=== PATIENT | male | born 1950 | race Caucasian/White ===

== ENCOUNTER 2016-08-29 09:55 | Emergency (ER) | payer OTHER, MEDICAID ==
--- NOTE | 2016-08-29 11:48 | DX ---
Chest, PA and Lateral History: Cough and fever Comparison: July 06, 2016, April 27, 2015 Findings: No evidence for pneumonia, cardiomegaly or pleural effusion formation. Moderately prominent lung volumes and perihilar bronchial wall thickening are stable and consistent with underlying COPD. No mass or adenopathy is identified. There is a small chronic hiatal hernia present behind the heart with a new air-fluid level within the hiatal hernia. A thoracic kyphosis associated with stable mil d compressions (T12, T8, T7, T6 and T4) are again present and suggest the possibility of underlying o steoporosis. A left chest wall auto defibrillator device and 2 right ventricular auto defibrillator l joann remain in place. Impression: 1. No pneumonia identified. 2. Suspect osteoporosis. This patient might benefit from a DEXA scan. 3. Small hiatal hernia.
[2016-08-29] MEDS ORDERED: IPRATROPIUM/ALBUTEROL 3 ML DEYVIAL IH ONE (11:49)
[2016-08-29] MEDS ORDERED: OSELTAMIVIR PHOSPHATE 75 MG CAP PO ONE (11:55)
--- NOTE | 2016-08-29 12:10 | UCPHY ---
[id number] 4d 08/29/16 11:55 HPI/ROS: CHIEF COMPLAINT: Cough flu-like symptoms HISTORY OF PRESENT ILLNESS: 65-year-old immunocompetent male with no history of influenza vaccination this season complaining of 5 days of nasal congestion, cough, flu-like symptoms. No chest pain. No back pain. REVIEW OF SYSTEMS: A ten point review of systems was performed and is negative with the exception of the items mentioned in the HPI PAST MEDICAL & SURGICAL HISTORY: AR. Implanted cardiac defibrillator. SOCIAL HISTORY:nonsmoker PHYSICAL EXAM (Prior to examination, patient consented to physical exam, hands were washed and my usual and customary physical exam procedures followed) 1) GENERAL: Well-developed, well-nourished, alert and oriented. Appears to be in no acute distress. 2) HEAD: Normocephalic, atraumatic 3) HEENT: Pupils equal, round, reactive to light bilaterally. Sclera anicteric. Nasopharynx, oropharynx, clear, no lesions. Ears bilaterally with normal tympanic membranes. 4) NECK: Full range of motion, no meningeal signs. 5) LUNGS: mild end-expiratory wheeze bilaterallyC no rhonchi, no retractions. 6) HEART: Regular rate and rhythm, no murmur, no heave, no gallop. 7) ABDOMEN: No guarding, no rebound, no focal tenderness, negative McBurney's, negative Pineda's, negative Rovsing's, negative peritoneal sign, 8) MUSCULOSKELETAL: . Moving all extremities, no focal areas of tenderness, no obvious trauma. No peripheral edema or discoloration. 9) BACK: No CVA tenderness, no midline vertebral tenderness, no fluctuance, no step-off, no obvious trauma, no visual or palpable abnormality. 10) SKIN: No rash, no petechiae. DIFFERENTIAL DIAGNOSIS: In no particular order including not limited to pneumonia, bronchitis, AR, PE (Jose Angel,D Faye) Constitutional: Initial Vital Signs Temperature (C) 36.7 C 08/29/16 11:04 Heart Rate 86 08/29/16 11:04 Respiratory Rate 18 08/29/16 11:04 Blood Pressure 107/79 08/29/16 11:04 O2 Sat (%) 95 08/29/16 11:04 O2 Delivery Mode Room Air Allergies/Adverse Reactions: No Known Allergies Allergy (Verified 08/29/16 11:03) Home Medications: Medication Instructions Recorded Aspirin [Aspirin 325 mg (*)] 325 mg PO DAILY 10/26/09 Carvedilol [Coreg (*)] 6.25 mg PO BIDMEAL 10/26/09 Furosemide [Lasix 20 MG (*)] 20 mg PO BID 10/26/09 PARoxetine HCL [Paxil 30mg (*)] 30 mg PO DAILY 10/26/09 Quinapril HCl [Accupril 10 MG] 10 mg PO DAILY 10/26/09 Albuterol [Proventil Inhaler HFA 1 - 2 puffs IH Q4PRN PRN #1 mdi 08/29/16 (*)] Oseltamivir Phosphate [Tamiflu] 75 mg PO BIDMEAL 5 Days 08/29/16 predniSONE [Prednisone] 60 mg PO DAILY #9 tablet 08/29/16 MDM/Departure - MDM Diagnostics: Chest, PA and Lateral History: Cough and fever Comparison: July 06, 2016, April 27, 2015 Findings: No evidence for pneumonia, cardiomegaly or pleural effusion formation. Moderately prominent lung volumes and perihilar bronchial wall thickening are stable and consistent with underlying COPD. No mass or adenopathy is identified. There is a small chronic hiatal hernia present behind the heart with a new air-fluid level within the hiatal hernia. A thoracic kyphosis associated with stable mild compressions (T12, T8, T7, T6 and T4) are again present and suggest the possibility of underlying osteoporosis. A left chest wall auto defibrillator device and 2 right ventricular auto defibrillator leads remain in place. Impression: 1. No pneumonia identified. 2. Suspect osteoporosis. This patient might benefit from a DEXA scan. 3. Small hiatal hernia. Dictated By: Vern Aguayo MD Images reviewed by myself (Caitlin Walter) Medications Given: Discontinued Medications Albuterol/Ipratropium (Duoneb) 3 ml IH EDNOW ONE Stop: 08/29/16 11:50 Last Admin: 08/29/16 11:57 Dose: 3 ml Oseltamivir Phosphate (Tamiflu) 75 mg PO EDNOW ONE Stop: 08/29/16 11:56 Last Admin: 08/29/16 12:18 Dose: 75 mg Prednisone (Prednisone) 60 mg PO EDNOW ONE Stop: 08/29/16 12:24 Last Admin: 08/29/16 12:45 Dose: 60 mg ED Course/Re-evaluation: 12:16 p.m.: Re-evaluation after DuoNeb treatment says that he is feeling significant improvement. His wheezing has resolved. Discussed case Dr. David Piña in the urgent care. Doubt PE. Doubt AR. I do not think that hospitalization is currently indicated. He has had no complaints of chest pain or dyspnea. He does have positive flu. He has been started on Tamiflu. Usual and customary URI precautions instructions provided. He feels comfortable being discharged. If at any point he develops chest pain, dyspnea, needs to call 911 (Caitlin Walter) Urgent Care PA supervision Physician documentation: The patient was evaluated and managed by the physician printer floor covering assistant. My co- signature indicates that I have reviewed this chart and I agree with the findings and plan of care as documented. I am is secondary supervising physician. (David Piña) - Depart Disposition: Home, Routine, Self-Care Clinical Impression: Influenza A Condition: Good Instructions: Influenza (ED) Additional Instructions: Return to the emergency department immediately for change in breathing habits, change in voice, change in swallowing habits, change in mental status, or any other symptoms that concern you. Stand Alone Forms: Work Excuse Prescriptions: Albuterol [Proventil Inhaler HFA (*)] 1 - 2 puffs IH Q4PRN PRN #1 mdi PRN Reason: Cough, Moderate Oseltamivir Phosphate [Tamiflu] 75 mg PO BIDMEAL 5 Days predniSONE [Prednisone] 60 mg PO DAILY #9 tablet Referrals: Sky Lomeli MD [Primary Care Provider] - 1 day without fail - PQRS PQRS Measurement: 134: Depression screening and followup, PRIME MD-PHQ2 (12 years and older) Over the last 2 weeks, how often have you been bothered by any of the following problems? 1. Feeling down, depressed, or hopeless? 2. Little interest or pleasure in doing things? Patient answered no to both 1 and 2 130: Documentation of medications. Reviewed all patient medications, doses, route and frequency. 226: Do you smoke? No. 47: 65 and older: Advanced care planning. Patient has advanced directive. 51: 18 years old and older with diagnosis of COPD, spirometry performance. Patient has no history of COPD 52: 18 years old and older with COPD and symptoms of COPD or FEV1<60% predicted prescribed a B Agonist. No COPD history (Caitlin Walter)
[2016-08-29] MEDS ORDERED: predniSONE 20 MG TAB PO ONE (12:23)
[2016-08-29 12:46] VITALS: BP 128/82; PULSE 93; RESP 16; TEMP 98.6; O2SAT 93
== END 2016-08-29 12:47 | disposition home or self-care (01) ==
LOC: CED 09:55
DX: J11.1 Influenza due to unidentified influenza virus with other respiratory manifestations (principal); Z95.810 Presence of automatic (implantable) cardiac defibrillator
CPT/HCPCS: 71020; G0463; 87400-PO; 99214-PO

== ENCOUNTER 2018-07-10 11:40 | Inpatient (IN) | payer OTHER ==
--- NOTE | 2018-07-09 19:18 | PDGENHP ---
History & Physical Chief Complaint: left knee osteoarthritis History of Present Illness: Jann is a pleasant 67 year old male with left knee osteoarthritis. He reports continued pain in his left knee to the point where it is affecting his daily activities. Pertinent Past, Social, Family History: PMH: anxiety, CAD, heart attack, heart disease, pacemaker. Social history: former smoker. FH: non-contributory Relevant Physical Exam: Physical exam of the left knee demonstrates a positive grind sign through the patella. He lacks 3-4 deg of full extension and flexion is somewhat limited. He has increased swelling within the popliteal fossa. He has mild gapping to a valgus stress suggestive of a loss of cartilage height. He has palpable spurring overlying the medial > lateral osteochondral junction which are tender to palpation. Minimally tender overlying the medial and lateral joint line. Distal neurovascularity intact upon a limited exam. Cardiorespiratory Assessment: RRR, CTAB
[~2018-07-10 11:40] MED LIST: ROPIVACAINE 0.2% 80 MG, EPINEPHrine 0.2 MG, KETOROLAC TROMETHAMINE 30 MG, morphINE 10 M... IU ONE; TRANEXAMIC ACID 3,000 MG in NS (SYRINGE) 50 ML IRR ONE
[2018-07-10] MEDS ORDERED: ceFAZolin 2 GM/DEXTROSE 100 ML IV ONE (11:50)
[2018-07-10] MEDS ORDERED: LR 1,000 ML IV ONE (11:57)
[2018-07-10] MEDS ORDERED: TRANEXAMIC ACID 3,000 MG/50 ML BAG IRR ONE (12:29)
[2018-07-10] MEDS ORDERED: THROMBIN (BOVINE) 5,000 UNIT VIAL TP ONE (12:29)
[2018-07-10] MEDS ORDERED: CALCIUM CHLORIDE 1 GM/10 ML INJ ONE (12:29)
[2018-07-10] MEDS ORDERED: BACITRACIN 50,000 UNITS/10 ML SYR IRR ONE (12:30)
[2018-07-10] MEDS ORDERED: POLYMYXIN B SULFATE 500,000 UNIT/10 ML SYR IRR ONE (12:30)
[2018-07-10] MEDS ORDERED: BUPIVACAINE/EPI 0.5% 30 ML SDV ONE (12:31)
--- NOTE | 2018-07-10 13:13 | PDHPUP ---
History & Physical Update H&P update statement: This history and physical update is based on an assessment of the patient which was completed after admission or registration (within 24 hours), but prior to the surgery/procedure. H&P update: H&P reviewed & patient examined, no change in patient's condition since H&P completed
[2018-07-10] MEDS ORDERED: MIDAZOLAM 2 MG/2 ML VIAL ONE (13:29)
[2018-07-10] MEDS ORDERED: fentaNYL 100 MCG/2 ML INJ ONE (13:31)
[2018-07-10] MEDS ORDERED: PROPOFOL/EMULSION 500 MG/50 ML BOTTLE IV ONE (13:32)
[2018-07-10] MEDS ORDERED: MIDAZOLAM 2 MG/2 ML VIAL IVP ONE (13:53)
--- NOTE | 2018-07-10 13:55 | PDANEPAE ---
ANE History of Present Illness 67 year old male for left knee arthroplasty. History of CAD, SD, CHF, cardiomyopathy and defibrillator. ANE Past Medical History - Cardiovascular History Hx Hypertension: No Hx Arrhythmias: No Hx Chest Pain: No Hx Coronary Artery / Peripheral Vascular Disease: Yes Hx CHF / Valvular Disease: No Hx Palpitations: No Cardiovascular History Comment: SD 1985. CARDIOMYOPATHY. AICD 2015 - [employer] - Pulmonary History Hx COPD: No Hx Asthma/Reactive Airway Disease: No Hx Recent Upper Respiratory Infection: No Hx Oxygen in Use at Home: No Hx Sleep Apnea: Yes Sleep Apnea Screening Result - Last Documented: Negative - Neurologic History Hx Cerebrovascular Accident: No Hx Seizures: No Hx Dementia: No - Endocrine History Hx Diabetes: No - Renal History Hx Renal Disorders: Yes Renal History Comment: HX OF POST OP DIFFICULTY WITH URINATION - Liver History Hx Hepatic Disorders: No - Neurological & Psychiatric Hx Hx Neurological and Psychiatric Disorders: Yes Neurological / Psychiatric History Comment: DEPRESSION - Cancer History Hx Cancer: Yes - Congenital Disorder History Hx Congenital Disorders: No - GI History Hx Gastrointestinal Disorders: Yes Gastrointestinal History Comment: HX OF COLON POLYPS - Other Health History Other Health History: FULL DENTURES. OSTEOARTHRITIS - Chronic Pain History Chronic Pain: Yes (LT KNEE) - Surgical History Prior Surgeries: RT RETINAL REPAIR 04/2018. RT TOTAL HIP 2016. ORIF RT HIP WITH POST HARDWARE REMVL. AICD 2014. REMVL NASAL GROWTH. 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 Pacemaker Last Checked: 07/03/18 ANE Patient History - Allergies Allergies/Adverse Reactions: No Known Allergies Allergy (Verified 08/29/16 11:03) - Home Medications Home Medications: Aspirin [Aspirin 325 mg (*)] 325 mg PO DAILY 10/26/09 [Last Taken 07/03/18] Carvedilol [Coreg (*)] 6.25 mg PO BIDMEAL 10/26/09 [Last Taken 07/09/18] Furosemide [Lasix 20 MG (*)] 20 mg PO BID 10/26/09 [Last Taken 07/09/18] PARoxetine HCL [Paxil 30mg (*)] 30 mg PO DAILY 10/26/09 [Last Taken 07/09/18] Quinapril HCl [Accupril 10 MG] 10 mg PO DAILY 10/26/09 [Last Taken 07/09/18] Rosuvastatin Calcium 5 mg PO HS 06/21/18 [Last Taken 07/09/18] Tamsulosin HCl [Flomax 0.4 MG (*)] 0.4 mg PO DAILY@19 06/21/18 [Last Taken 07/09] - NPO status NPO Since - Liquids (Date): 07/10/18 NPO Since - Liquids (Time): 09:00 NPO Since - Solids (Date): 07/09/18 NPO Since - Solids (Time): 18:00 - Smoking Hx Smoking Status: Former smoker ANE Labs/Vital Signs - Vital Signs Blood Pressure: 107/63 Heart Rate: 68 Respiratory Rate: 15 O2 Sat (%): 96 Height: 172.72 cm Weight: 70.307 kg ANE Physical Exam - Airway Neck exam: FROM Mallampati Score: Class 2 Mouth exam: poor dentition - Pulmonary Pulmonary: no respiratory distress - Cardiovascular Cardiovascular: regular rate and rhythym - ASA Status ASA Status: III ANE Anesthesia Plan Anesthesia Plan: spinal Regional Anesthesia: adductor canal FNB
[2018-07-10] MEDS ORDERED: fentaNYL 100 MCG/2 ML INJ IVP PRN (14:01)
[2018-07-10] MEDS ORDERED: NALOXONE HCL 0.4 MG/ML INJ IVP PRN (14:01)
[2018-07-10] MEDS ORDERED: DEXAMETHASONE 4 MG/ML VIAL IVP PRN (14:01)
[2018-07-10] MEDS ORDERED: oxyCODONE IR 5 MG TAB PO PRN (14:01)
[2018-07-10] MEDS ORDERED: ALBUTEROL 3 ML DEYVIAL IH PRN (14:01)
[2018-07-10] MEDS ORDERED: ONDANSETRON 4 MG/2 ML VIAL IVP PRN ×2 (14:01→15:39)
[2018-07-10] MEDS ORDERED: LABETALOL HCL 5 MG/ML 20 ML MDV IVP PRN (14:01)
[2018-07-10] MEDS ORDERED: LR 500 ML IV PRN (14:01)
[2018-07-10] MEDS ORDERED: TAPENTADOL HCL 50 MG TAB PO PRN (15:39)
[2018-07-10] MEDS ORDERED: PROMETHAZINE HCL 25 MG SUPPR PR PRN (15:39)
[2018-07-10] MEDS ORDERED: POLYETHYLENE GLYCOL 3350 17 GM PKT PO PRN (15:39)
[2018-07-10] MEDS ORDERED: DIPHENOXYLATE/ATROPINE LOMOTIL 1 TAB PO PRN (15:39)
[2018-07-10] MEDS ORDERED: diphenhydrAMINE 25 MG CAP PO PRN (15:39)
[2018-07-10] MEDS ORDERED: TEMAZEPAM 15 MG CAP PO PRN (15:39)
[2018-07-10] MEDS ORDERED: BISACODYL 10 MG SUPP PR PRN (15:39)
[2018-07-10] MEDS ORDERED: PROMETHAZINE HCL 25 MG/ML INJ IVP PRN (15:39)
[2018-07-10] MEDS ORDERED: MAGNESIUM HYDROXIDE 30 ML UDCUP PO PRN (15:39)
[2018-07-10] MEDS ORDERED: CYCLOBENZAPRINE 10 MG TAB PO PRN (15:39)
[2018-07-10] MEDS ORDERED: ONDANSETRON DISINTEGRATING 4 MG TAB PO PRN (15:39)
[2018-07-10] MEDS ORDERED: LACTULOSE 20 GM/30 ML UDCUP PO PRN (15:39)
[2018-07-10] MEDS ORDERED: METOCLOPRAMIDE 10 MG/2 ML VIAL IVP PRN (15:39)
--- NOTE | 2018-07-10 15:39 | POSTOPPROG ---
Post Op Note Date of Operation: 07/10/18 Surgeon: Corinne Hoff Supervisor Patching: coltrain Anesthesia: Epidural, IV Sedation Pre-op Diagnosis: l knee oa Procedure: l tkr Inf/Abcess present in the surg proc area at time of surgery?: No Depth: Deep Incisional (Fascial) EBL: 100-500
[2018-07-10] MEDS ORDERED: LR 1,000 ML IV SCH (16:00)
--- NOTE | 2018-07-10 17:55 | POSTANESTH ---
Post Anesthetic Evaluation Cardiovascular Status: Normal, Stable Respiratory Status: Normal, Stable Level of Consciousness/Mental Status: Can Participate in Eval Pain Control: Adequate, Prn Tx Ordered Nausea/Vomiting Control: Adequate, Prn Tx Ordered Complications Possibly Related to Anesthesia: None Noted
[2018-07-10] MEDS: LISINOPRIL 10 MG TAB PO SCH (18:45)
[2018-07-10] MEDS ORDERED: TAMSULOSIN HCL 0.4 MG CAP PO SCH (19:00)
[2018-07-10] MEDS: traMADol 50 MG TAB PO SCH (19:15)
[2018-07-10] MEDS: ACETAMINOPHEN 325 MG TAB PO SCH (19:15)
[2018-07-10] MEDS: CARVEDILOL 6.25 MG TAB PO SCH (19:16)
[2018-07-10] MEDS: KETOROLAC 15 MG/1 ML SDV IVP SCH (19:16)
[2018-07-10] MEDS: FUROSEMIDE 20 MG TAB PO SCH (20:27)
[2018-07-10] MEDS: ceFAZolin 2 GM/DEXTROSE 100 ML IV SCH (20:27)
[2018-07-10] MEDS: FAMOTIDINE 20 MG TAB PO SCH (20:27)
[2018-07-10] MEDS: SENNOSIDES/DOCUSATE SODIUM TAB PO SCH (20:28)
[2018-07-11] MEDS: ACETAMINOPHEN 325 MG TAB PO SCH ×3 (00:09→11:46)
[2018-07-11] MEDS: KETOROLAC 15 MG/1 ML SDV IVP SCH ×3 (00:09→11:47)
[2018-07-11] MEDS: traMADol 50 MG TAB PO SCH ×3 (00:09→11:47)
--- NOTE | 2018-07-11 00:26 | GOP ---
DATE OF OPERATION: 07/10/2018 SURGEON: Corinne Hoff MD RADAR SIGNAL PROCESSING ENGINEER: KENNETH Parker, LSA, whose presence was medically necessary. ANESTHESIA: Epidural plus IV sedation. PREOPERATIVE DIAGNOSIS: Left knee osteoarthritis. POSTOPERATIVE DIAGNOSIS: Left knee osteoarthritis. PROCEDURE PERFORMED: Left total knee arthroplasty. FINDINGS: INDICATIONS: This is a 67-year-old male with a several year history of left knee pain worsening with use and with time despite multiple conservative measures. Radiological studies reveal [id number]-rh-[id number] osteoarthritic changes. He wishes to have surgery in order to resolve the problem. DESCRIPTION OF PROCEDURE: Patient was brought to the operating room after the left side had been nita ntified as correct side by the patient, nurse, and physician. Once in the operating room, he was giv en epidural nerve block and then placed under IV sedation. He had a tourniquet placed around the upp er portion of the left side. The left lower extremity was then sterilely prepped and draped in usual fashion using GSI solution. Once prepped and draped, limb was exsanguinated, tourniquet inflated to 250 mmHg. Incorporating an old curvilinear incision he had at the inferior portion of his knee, the incision was extended superiorly approximately 10 or more centimeters. Sharp dissection was carried down through the skin and subcutaneous layers with bleeding controlled using electrocautery. A medi al parapatellar incision was made through the extensor mechanism with patella brought to the side but not everted. He was noted to have grade 4 chondral changes in the medial compartment and grade 3 ch ondral changes noted through the remainder of the knee. The ACL as well as the medial and lateral me niscus were removed. Drill hole was made 1 cm anterior to the intercondylar notch with an intramedul pastor guide placed within the femur set at 5 degrees of valgus and set to remove 10 mm of bone. The c utting block was pinned into place. The intramedullary guide was removed. Oscillating saw was used to remove the distal end of the femur. Once achieving a flat cut, the knee was brought to further fl exion. A curved osteotome was used to remove the cartilage from the posterior condyles of each of th e femurs. Sizing guide was put in place, noting that a size 6 seemed to fit best without notching th e anterior cortex of the femur then 4 drill holes were made, and a size 6 4-in-1 cutting block was pu t into place with the anterior, posterior, and chamfer cuts made. Size 6 trial was put into place an d noted to fit securely. The leg was able to be fully extended, suggesting an adequate amount of bon e had been removed. Lug holes were drilled for the femoral component, and the femoral trial was ray yannick. The knee was then brought to maximal flexion. The tibia subluxed anteriorly. An external tibi al guide was put into place, set in neutral varus valgus and set to remove 2 mm of bone from the low side of the tibia which was the medial side. Once pinned into place, cutting block and a drop [place] pl aced through it noting good alignment both in posterior slope and in varus valgus. Locking pin was p ut into place. An oscillating saw was used to remove the proximal portion of the tibia. Trial femur and tibia were put into place with the trial liner noted have good extension, suggesting an adequate amount of bone had been removed. Therefore, the trials were removed. The knee brought back to maxi mal flexion with tibia subluxed anteriorly. Several sizes were trialed on the cut surface of the tib ia, and a size 5 seemed to fit best and was placed in slight external rotation, pinned into place and a keel punch passed through the trial. The keel punch was removed as well as the tibial trial. The knee was then brought to full extension with the patella then everted and held in place with towel c lips. The patella was measured to be 24 mm in thickness. Oscillating saw was used to remove the pos terior portion of the patella, leaving 14 mm of bone. Several sizes were trialed on the cut surface of bone noted that a 38 mm patella seemed to fit best, and lug holes were drilled for 38 mm patella. All the cut surfaces of bone were thoroughly irrigated with an antibiotic solution using pulsatile l avage while cement was being mixed. Once cement was doughy, it was placed on the proximal portion of the tibia with a size 5 Triathlon tibial base plate from Ajay put into place and excess cement re moved using Roxobel elevator. Cement was then placed on the posterior skids of the femoral component w ith cement placed on the distal anterior portions of the femur with a size 6 left cruciate-retaining Triathlon femoral component from [place] put into place and excess cement removed using Roxobel elevato r. A trial liner was placed in the tibial tray, and the knee was brought to full extension in order to pressurize cement. Cement was then placed on the cut surface of the patella with a 38 mm triathlo n asymmetric patella from Ajay put into place and excess cement removed using Roxobel elevator. Nimo nt cocktail was then injected into the posterior capsule as well as the periosteum of the femur, tibi a, and the extensor mechanism. Tranexamic acid was irrigated through the wound. Once cement had den dened, any excess cement was removed using combination of rongeur and osteotome. Several trials were placed the tibial tray and noted that an 11 mm insert seemed to fit best. Therefore, a size five 11 mm polyethylene liner was placed in the tibial tray. Once in place, tourniquet was released at 60 m inutes. The knee was placed in 30 degrees of flexion. Bleeding was controlled using electrocautery. The wound was then closed in layers to include 0 Vicryl suture in a [id number]-[id number] type stitch for the extensor mechanism, with plasma gel placed intra-articularly. 0 Vicryl and 2-0 Vicryl suture we re used to close the subcutaneous layers with plasma gel placed external to the extensor mechanism, a nd a 3-0 V-Loc suture in a running subcuticular stitch was used to close the skin. The wound was the n dressed with Steri-Strips, Xeroform, 4 x 4, and Kerlix. Leg was completely undraped in the operati ng room. Tourniquet removed from the thigh and Moi wrap placed around the knee. Patient was then wo flo up, transferred onto a stretcher, and sent to recovery room in good condition. TOURNIQUET TIME: 60 minutes. /[id number]/MODL
[2018-07-11] MEDS: ceFAZolin 2 GM/DEXTROSE 100 ML IV SCH (04:40)
--- NOTE | 2018-07-11 06:03 | PDMN ---
Medical Necessity Medical necessity: [facility] [place] A-2 days: INPT for 67 yr old male with PMH anxiety, heart attack, heart disease, pacemaker, - high risk pt. OP: L TKA
[2018-07-11] MEDS ORDERED: TRANEXAMIC ACID 3,000 MG in NS (SYRINGE) 50 ML IRR ONE (07:00)
[2018-07-11] MEDS ORDERED: ROPIVACAINE 0.2% 80 MG, EPINEPHrine 0.2 MG, KETOROLAC TROMETHAMINE 30 MG, morphINE 10 M... IU ONE (07:00)
[2018-07-11] MEDS: CARVEDILOL 6.25 MG TAB PO SCH (08:08)
[2018-07-11] MEDS: LISINOPRIL 10 MG TAB PO SCH (08:08)
[2018-07-11] MEDS: FUROSEMIDE 20 MG TAB PO SCH (08:08)
[2018-07-11] MEDS: FAMOTIDINE 20 MG TAB PO SCH (08:09)
[2018-07-11] MEDS: SENNOSIDES/DOCUSATE SODIUM TAB PO SCH (08:09)
[2018-07-11] MEDS: oxyCODONE IR 5 MG TAB PO PRN ×2 (08:11→12:41)
[2018-07-11] MEDS ORDERED: RIVAROXABAN 10 MG TAB PO SCH (09:00)
[2018-07-11] MEDS ORDERED: ROSUVASTATIN CALCIUM 10 MG TAB PO SCH (09:00)
--- NOTE | 2018-07-11 09:37 | SOAPPROG ---
SOAP Progress Note Assessment/Plan: Assessment: Chapo is POD#1 s/p LTKA and reports he is doing very well. PE: Dressing clean and dry Calf is soft to compression without pain Extensor mechanism intact NV intact LLE Plan: Discharge home today with prescriptions for pain medication. Patient will follow up in 7-10 days. 07/11/18 09:35 Objective: Vital Signs Temp Pulse Resp BP Pulse Ox 36.4 C 65 17 116/75 97 07/11/18 08:00 07/11/18 08:08 07/11/18 08:00 07/11/18 08:08 07/11/18 08:00 Laboratory Results 07/11/18 04:17 07/10/18 07/11/18 07/12/18 05:59 05:59 05:59 Intake Total 2415 500 Output Total 550 Balance 1865 500 ICD10 Worksheet Patient Problems: Problems Problem Status Onset Cardiomyopathy Acute
[2018-07-11 11:09] VITALS: BP 90/54
--- NOTE | 2018-07-11 11:30 | ASMTLACE ---
CONG Length of stay for Answers: 1 day current admission Acuity / Level of Answers: Yes Care: Did the patient have an inpatient admission? Comorbidities - select Answers: Coronary Artery Disease all that apply Opioid dependence / Chronic pain Previous myocardial infarction # of Emergency department Answers: 0 visits in the last 6 months Social determinants Answers: Mental health diagnosis (anxiety, depression, pers onality disorders, etc.) Score: 14 Date Signed: 07/11/2018 11:30 AM Electronically Signed By:Delicia Jama RN
--- NOTE | 2018-07-11 11:32 | ASMTCMCOM ---
CM Note CM Note Notes: Met with patient to discuss discharge planning needs. Patient has been cleared by therapy - he plans on following-up with outpatient therapy next week in [place]. Friend to transporrt home. No CM needs at this time. CM available should something change. Date Signed: 07/11/2018 11:31 AM Electronically Signed By:Delicia Jama RN
== END 2018-07-11 13:30 | disposition home or self-care (01) | DRG 470 ==
LOC: F3N 11:40
PROVIDERS: ADMIT Orthopaedic Surgery; ATTEND Orthopaedic Surgery
PROC: 0SRD0J9 Replacement of Left Knee Joint with Synthetic Substitute, Cemented, Open Approach (ICD-10-PCS; principal; 2018-07-10 13:45)
DX: M17.12 Unilateral primary osteoarthritis, left knee (principal); I25.10 Atherosclerotic heart disease of native coronary artery without angina pectoris; I25.2 Old myocardial infarction; Z95.0 Presence of cardiac pacemaker; Z87.891 Personal history of nicotine dependence
CPT/HCPCS: 97116-GP; 97161-GP; 97165-GO; C1713; G8987-GO-CI; G8988-GO-CH; G8989-GO-CI; J0171; J0690; J1885; J2250; J2270; J2704; J2795; J3010

== ENCOUNTER → 2018-10-04 | Outpatient (CLI) | payer OTHER | LOC: FIMAGING 12:38 | PROVIDERS: ATTEND Physician Assistant | DX: M25.551 Pain in right hip (principal); Z98.890 Other specified postprocedural states; Z96.641 Presence of right artificial hip joint; Z87.81 Personal history of (healed) traumatic fracture ==

== ENCOUNTER → 2018-11-15 | Outpatient (CLI) | payer OTHER | LOC: FIMAGING 10:48 | PROVIDERS: ATTEND Physician Assistant | DX: T84.03 Mechanical loosening of internal prosthetic joint (principal) | CPT/HCPCS: 78315; A9503 ==

== ENCOUNTER → 2018-12-06 | Outpatient (CLI) | payer OTHER | LOC: FIMAGING 12:25 | PROVIDERS: ATTEND Physician Assistant | DX: R60.9 Edema, unspecified (principal); R59.0 Localized enlarged lymph nodes; Z96.641 Presence of right artificial hip joint ==

== ENCOUNTER → 2018-12-19 | Outpatient (CLI) | payer OTHER ==
[~2018-12-19] MED LIST changes: +BUPIVACAINE 0.25% 30 ML SDV ONE; +BUPIVACAINE/DEXTROSE 7.5MG/ML 2 ML SPINAL AMP SP ONE; +DEPO METHYLPREDNISOLONE 40 MG/ML SDV ONE; +LIDOCAINE 1% 300 MG/30 ML SDV ONE; -ROPIVACAINE 0.2% 80 MG, EPINEPHrine 0.2 MG, KETOROLAC TROMETHAMINE 30 MG, morphINE 10 M... IU ONE; -TRANEXAMIC ACID 3,000 MG in NS (SYRINGE) 50 ML IRR ONE
== END ==
LOC: FIMAGING 12:53
PROVIDERS: ATTEND Physician Assistant
DX: S76.811A Strain of other specified muscles, fascia and tendons at thigh level, right thigh, initial encounter (principal); Y93.9 Activity, unspecified
CPT/HCPCS: 20550; 76942; J1030

== ENCOUNTER 2019-01-22 05:31 | Day surgery (SDC) | payer OTHER ==
--- NOTE | 2019-01-21 14:37 | GHP ---
[f rep st] PRE-OP HISTORY AND PHYSICAL CURRENT COMPLAINT: Right hip pain. HISTORY OF PRESENT ILLNESS: The patient is a 68-year-old male with unremitting pain of the anterior portion of his right hip after having undergone a right total hip arthroplasty back in 2017. He has tried ultrasound-guided injections directed at its origin with relief. He would like surgery in order to resolve the problem. ALLERGIES: He lists no drug allergies. CURRENT MEDICATIONS: Include carvedilol, furosemide, paroxetine, quinapril, rosuvastatin, tamsulosin, tramadol. PRIOR MEDICAL PROBLEMS: Include coronary artery disease, history of an MT, and a pacemaker. PRIOR SURGERIES: Include total knee arthroplasty and total hip arthroplasty. SOCIAL HISTORY: He is a former smoker, social drinker. PHYSICAL EXAMINATION: HEENT: The patient's pupils are equal, round, react to light. CHEST: Clear to auscultation. HEART: Regular rate and rhythm. ABDOMEN: Soft and nontender. EXTREMITIES: Patient has pain to flexion and internal rotation of the hip and pain and weakness associated with hip flexion and tenderness to the hip flexors on the right side. Prior CT scan revealed a well-fixed prosthesis. ASSESSMENT: Patient is status post right hip tendinopathy. PLAN: Take him to the operating room to undergo an open right hip flexor tendon tenotomy. /[id number]/MODL MTDD
[2019-01-22] MEDS ORDERED: ceFAZolin 2 GM/DEXTROSE 100 ML IV ONE (05:55)
[2019-01-22] MEDS ORDERED: LR 1,000 ML IV SCH ×2 (05:55→09:30)
[2019-01-22] MEDS ORDERED: ROPIVACAINE 0.2% 80 MG, EPINEPHrine 0.2 MG, KETOROLAC TROMETHAMINE 30 MG, morphINE 10 M... IU ONE (05:55)
[2019-01-22] MEDS ORDERED: TRANEXAMIC ACID 3,000 MG in NS (SYRINGE) 50 ML IRR ONE (05:55)
[2019-01-22] MEDS ORDERED: LR 1,000 ML IV ONE (05:56)
[2019-01-22] MEDS ORDERED: LIDOCAINE 1% 2 ML INJ ID PRN (05:56)
[2019-01-22] MEDS ORDERED: POLYMYXIN B SULFATE 500,000 UNIT/10 ML SYR IRR ONE (06:23)
[2019-01-22] MEDS ORDERED: BACITRACIN 50,000 UNITS/10 ML SYR IRR ONE (06:23)
[2019-01-22] MEDS ORDERED: BUPIVACAINE/EPI 0.5% 30 ML SDV ONE (06:23)
[2019-01-22] MEDS ORDERED: MIDAZOLAM 2 MG/2 ML VIAL IVP ONE (06:51)
--- NOTE | 2019-01-22 06:51 | PDANEPAE ---
ANE History of Present Illness R open hip flexor repair ANE Past Medical History - Cardiovascular History Hx Hypertension: No Hx Arrhythmias: No Hx Chest Pain: No Hx Coronary Artery / Peripheral Vascular Disease: Yes Hx CHF / Valvular Disease: No Hx Palpitations: No Cardiovascular History Comment: [place] 1985. CARDIOMYOPATHY. AICD 2015 - [employer] - Pulmonary History Hx COPD: No Hx Asthma/Reactive Airway Disease: No Hx Recent Upper Respiratory Infection: No Hx Oxygen in Use at Home: No Hx Sleep Apnea: Yes Sleep Apnea Screening Result - Last Documented: Positive Pulmonary History Comment: SLEEP APNEA - NO CPAP - Neurologic History Hx Cerebrovascular Accident: No Hx Seizures: No Hx Dementia: No - Endocrine History Hx Diabetes: No - Renal History Hx Renal Disorders: Yes Renal History Comment: HX OF POST OP DIFFICULTY WITH URINATION - Liver History Hx Hepatic Disorders: No - Neurological & Psychiatric Hx Hx Neurological and Psychiatric Disorders: Yes Neurological / Psychiatric History Comment: DEPRESSION - Cancer History Hx Cancer: Yes - Congenital Disorder History Hx Congenital Disorders: No - GI History Hx Gastrointestinal Disorders: Yes Gastrointestinal History Comment: HX OF COLON POLYPS - Other Health History Other Health History: FULL DENTURES. OSTEOARTHRITIS - Chronic Pain History Chronic Pain: Yes (HIP FLEXOR R) - Surgical History Prior Surgeries: L TKA. PRP 01/02/19. RT RETINAL REPAIR 04/2018. RT TOTAL HIP 2016. ORIF RT HIP WITH POST HARDWARE REMVL. AICD 2014. REMVL NASAL GROWTH. 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: [employer] Date Pacemaker Last Checked: 01-08-19 ANE Patient History - Allergies Allergies/Adverse Reactions: No Known Allergies Allergy (Verified 08/29/16 11:03) - Home Medications Home medications: home medication list seen and reviewed Home Medications: Carvedilol [Coreg (*)] 6.25 mg PO BIDMEAL 10/26/09 [Last Taken 01/21/19] Furosemide [Lasix 20 MG (*)] 20 mg PO BID 10/26/09 [Last Taken 01/21/19] PARoxetine HCL [Paxil 30mg (*)] 30 mg PO DAILY 10/26/09 [Last Taken 01/21/19] Quinapril HCl [Accupril 10 MG] 10 mg PO DAILY 10/26/09 [Last Taken 01/21/19] Rosuvastatin Calcium 5 mg PO HS 06/21/18 [Last Taken 01/21/19] Tamsulosin HCl [Flomax 0.4 MG (*)] 0.4 mg PO DAILY@19 06/21/18 [Last Taken 01/21] Aspirin [Aspirin 81mg (*)] 81 mg PO DAILY 01/15/19 [Last Taken 12/19/18] Herbals/Supplements -Info Only 1 ea PO DAILY 01/15/19 [Last Taken 01/15/19] [place]-3 Fatty Acids [Fish Oil 1000 mg (*)] 1,000 mg PO DAILY 01/15/19 [Last Taken 01/15/19] - NPO status NPO Since - Liquids (Date): 01/21/19 NPO Since - Liquids (Time): 23:00 NPO Since - Solids (Date): 01/21/19 NPO Since - Solids (Time): 23:00 - Anes Hx Anes Hx: no prior problems - Smoking Hx Smoking Status: Former smoker - Family Anes Hx Family Anes Hx: none ANE Labs/Vital Signs - Labs Result Diagrams: 01/22/19 06:15 - Vital Signs Vital Signs: reviewed preoperatively; see RN documention for details Blood Pressure: 116/72 Heart Rate: 62 Respiratory Rate: 16 O2 Sat (%): 97 Height: 172.72 cm Weight: 68.039 kg ANE Physical Exam - Airway Neck exam: FROM Mallampati Score: Class 2 Mouth exam: poor dentition - Pulmonary Pulmonary: no respiratory distress - Cardiovascular Cardiovascular: regular rate and rhythym - ASA Status ASA Status: III ANE Anesthesia Plan Anesthesia Plan: GA w LMA
[2019-01-22] MEDS ORDERED: ONDANSETRON 4 MG/2 ML VIAL ONE (07:09)
[2019-01-22] MEDS ORDERED: LIDOCAINE 2% 100 MG/5 ML SYR ONE (07:09)
[2019-01-22] MEDS ORDERED: DEXAMETHASONE 4 MG/ML VIAL ONE (07:09)
[2019-01-22] MEDS ORDERED: PROPOFOL 200 MG/20 ML VIAL ONE (07:10)
[2019-01-22] MEDS ORDERED: fentaNYL 100 MCG/2 ML INJ ONE ×2 (07:10→09:22)
[2019-01-22] MEDS ORDERED: HYDROmorphONE/DILAUDID 2 MG/ML INJ ONE (07:56)
[2019-01-22] MEDS ORDERED: TRANEXAMIC ACID 1,000 MG/10 ML VIAL ONE (08:14)
[2019-01-22] MEDS ORDERED: TRANEXAMIC ACID 3,000 MG/50 ML BAG IRR ONE (08:20)
[2019-01-22] MEDS ORDERED: MEPERIDINE 25 MG/0.5 ML AMP IVP PRN (08:20)
[2019-01-22] MEDS ORDERED: HYDROCODONE/APAP 5/325 TAB PO PRN (08:20)
[2019-01-22] MEDS ORDERED: NALOXONE HCL 0.4 MG/ML INJ IVP PRN (08:20)
[2019-01-22] MEDS ORDERED: ONDANSETRON 4 MG/2 ML VIAL IVP PRN ×2 (08:20→09:02)
[2019-01-22] MEDS ORDERED: HYDROmorphONE/DILAUDID 1 MG/ML INJ IVP PRN (08:20)
[2019-01-22] MEDS ORDERED: oxyCODONE IR 5 MG TAB PO PRN (08:20)
[2019-01-22] MEDS ORDERED: DEXAMETHASONE 4 MG/ML VIAL IVP PRN (08:20)
[2019-01-22] MEDS ORDERED: PROMETHAZINE HCL 25 MG/ML INJ IVP PRN ×2 (08:20→09:02)
--- NOTE | 2019-01-22 08:20 | POSTANESTH ---
Post Anesthetic Evaluation Cardiovascular Status: Similar to Pre-Op Cond Respiratory Status: Similar to Pre-op Cond. Level of Consciousness/Mental Status: Can Participate in Eval, Mildly Sleepy, Arousable Pain Control: Adequate, Prn Tx Ordered Nausea/Vomiting Control: Adequate, Prn Tx Ordered Complications Possibly Related to Anesthesia: None Noted
[2019-01-22] MEDS ORDERED: POVIDONE-IODINE 20 ML in SODIUM CL IRRIG SOLUTION 500 ML IRR ONE (08:30)
[2019-01-22] MEDS ORDERED: PHENYLEPHRINE HCL 100 MCG/ML SYR ONE (08:46)
[2019-01-22] MEDS ORDERED: ePHEDrine SULFATE 25 MG/5 ML SYR ONE (08:46)
--- NOTE | 2019-01-22 09:01 | POSTOPPROG ---
Post Op Note Date of Operation: 01/22/19 Surgeon: Corinne Hoff Anesthesia: LMA Pre-op Diagnosis: r hip tendinopathy Procedure: r hip tenotomy with spur excision Inf/Abcess present in the surg proc area at time of surgery?: No Depth: Deep Incisional (Fascial) EBL: 50-100
[2019-01-22] MEDS ORDERED: BISACODYL 10 MG SUPP PR PRN (09:02)
[2019-01-22] MEDS ORDERED: PROMETHAZINE HCL 25 MG SUPPR PR PRN (09:02)
[2019-01-22] MEDS ORDERED: CYCLOBENZAPRINE 10 MG TAB PO PRN (09:02)
[2019-01-22] MEDS ORDERED: MAGNESIUM HYDROXIDE 30 ML UDCUP PO PRN (09:02)
[2019-01-22] MEDS ORDERED: ONDANSETRON DISINTEGRATING 4 MG TAB PO PRN (09:02)
[2019-01-22] MEDS ORDERED: METOCLOPRAMIDE 10 MG/2 ML VIAL IVP PRN (09:02)
[2019-01-22] MEDS ORDERED: diphenhydrAMINE 25 MG CAP PO PRN (09:02)
[2019-01-22] MEDS ORDERED: KETOROLAC 15 MG/1 ML SDV IVP ONE (09:02)
[2019-01-22] MEDS ORDERED: POLYETHYLENE GLYCOL 3350 17 GM PKT PO PRN (09:02)
[2019-01-22] MEDS ORDERED: DIPHENOXYLATE/ATROPINE LOMOTIL 1 TAB PO PRN (09:02)
[2019-01-22] MEDS ORDERED: TEMAZEPAM 15 MG CAP PO PRN (09:02)
[2019-01-22] MEDS ORDERED: LACTULOSE 20 GM/30 ML UDCUP PO PRN (09:02)
[2019-01-22] MEDS: fentaNYL 100 MCG/2 ML INJ IVP PRN ×2 (09:24→09:40)
[2019-01-22] MEDS ORDERED: KETOROLAC 15 MG/1 ML SDV ONE (10:03)
[2019-01-22] MEDS ORDERED: HYDROCODONE/APAP 5/325 TAB ONE (10:03)
--- NOTE | 2019-01-22 10:09 | GOP ---
[f rep st] OPERATIVE REPORT DATE OF OPERATION: 01/22/2019 SURGEON: Corinne Hoff MD ANESTHESIA: Endotracheal intubation. PREOPERATIVE DIAGNOSIS: Right hip flexor tendinopathy. POSTOPERATIVE DIAGNOSIS: Right hip flexor tendinopathy. PROCEDURE PERFORMED: Open right hip tenotomy with acetabular spur excision. FINDINGS: INDICATIONS: This is a 68-year-old male who had previously undergone a right total hip several years ago. Has continued to have anterior hip pain associated with tendinopathy. He has had temporary re lief with an injection, but no long-lasting results despite injections and physical therapy. He woul d like a tenotomy in order to resolve his pain issues. DESCRIPTION OF PROCEDURE: The patient was brought to the operating room. After the right side was i dentified as correct side by the patient, nurse and physician. Once in the operating room, he was pl aced under general anesthesia using endotracheal intubation. Once asleep, he was placed on a tractio n table with a well-padded peroneal post and both legs placed in appropriate leg kam. The right h ip and flank were sterilely prepped and draped in the usual fashion using GSI solution. Once prepped and draped, incision was made starting 2 cm lateral and inferior to the ASIS and heading in a 15-deg ree posterior direction, with sharp dissection carried down through the skin and subcutaneous layers, with bleeding controlled using electrocautery. The fascia overlying the TFL was identified and cut in line with its fibers with the muscle belly retracted laterally. The circumflex vessels at the bas e of the fascial sheath were cauterized. Deeper dissection was carried down along the capsule and th en dissection carried medially finding the ileal psoas, as well as the origin of the rectus. The cheng gin of the rectus was peeled off the bone gently and not in its entirety, and the iliopsoas attachmen t near the lesser trochanter was incised approximately 60% of the way through. Blunt dissection was carried down above and below. Able to get a finger underneath the iliopsoas and up over the pelvic b rim and into the pelvis itself, suggesting adequate release. Capsule was removed from the anterior p ortion of the hips. Was noted to have a small spur at the anterior portion of the, acetabulum which was debrided until achieving a smooth surface across the iliac crest and over the anterior portion of the iliopsoas. Once completed, joint cocktail was injected into the rectus, iliopsoas, the TFL musc le belly. The wound was thoroughly irrigated with tranexamic acid as well as Betadine solution. Onc e thoroughly irrigated and bleeding had been controlled using electrocautery, the wound was closed in layers to include 0 Vicryl suture in a running whip stitch for the fascial layer overlying the TFL, 0 Vicryl and 2-0 Vicryl suture for the subcutaneous layers and a 3-0 V-Loc suture in a running subcut icular stitch for the skin. 30 cc of Marcaine was infused around the actual skin incision itself. T he wound was dressed with Steri-Strips, Xeroform, 4 x 4, and Tegaderm. The patient was completely un draped in the operating room. Both legs were taken out of their leg holders, peroneal post removed. The patient was woken up, extubated, transferred onto a stretcher, and sent to recovery room in good condition. /[id number]/MODL
[2019-01-22 11:11] VITALS: BP 118/66
[2019-01-22] MEDS ORDERED: ACETAMINOPHEN 325 MG TAB PO SCH (15:02)
[2019-01-22] MEDS ORDERED: CARVEDILOL 6.25 MG TAB PO SCH (18:00)
[2019-01-22] MEDS ORDERED: TAMSULOSIN HCL 0.4 MG CAP PO SCH (19:00)
[2019-01-22] MEDS ORDERED: FUROSEMIDE 20 MG TAB PO SCH (21:00)
[2019-01-22] MEDS ORDERED: ASPIRIN 325 MG TAB PO SCH (21:00)
[2019-01-22] MEDS ORDERED: FAMOTIDINE 20 MG TAB PO SCH (21:00)
[2019-01-22] MEDS ORDERED: SENNOSIDES/DOCUSATE SODIUM TAB PO SCH (21:00)
[2019-01-23] MEDS ORDERED: LISINOPRIL 10 MG TAB PO SCH (09:00)
[2019-01-23] MEDS ORDERED: ROSUVASTATIN CALCIUM 10 MG TAB PO SCH (09:00)
== END 2019-01-22 11:20 | disposition home or self-care (01) ==
LOC: FSGY 05:31 → F3N 05:31 → UNDOADMIN 05:31 → EDSTATUS 07:15 → FSGY 11:20 → UNDODISIN 11:20
PROVIDERS: ATTEND Orthopaedic Surgery
PROC: 0LNJ0ZZ Release Right Hip Tendon, Open Approach (ICD-10-PCS; principal; 2019-01-22 07:15)
PROC: 0QB20ZZ Excision of Right Pelvic Bone, Open Approach (ICD-10-PCS; principal; 2019-01-22 07:15)
DX: M76.891 Other specified enthesopathies of right lower limb, excluding foot (principal); Z96.641 Presence of right artificial hip joint; Z96.659 Presence of unspecified artificial knee joint
CPT/HCPCS: J0171; J0690; J1100; J1170; J1885; J2001; J2250; J2270; J2370; J2405; J2704; J2795; J3010